=== PATIENT | female | born 1985 | race Caucasian/White ===

== ENCOUNTER 2022-04-07 17:47 | Emergency (ER) | payer MEDICAID ==
[~2022-04-07] VITALS: Ht 157.5 cm; Wt 69.9 kg
[2022-04-07 18:41] VITALS: BP 153/89
--- NOTE | 2022-04-07 18:52 | NUR ---
Valerie bojorquez in [facility] - 04/07/22 at 1853 by NICK NO ANSWER WHEN CALLED TO TRIAGE
--- NOTE | 2022-04-07 22:34 | NUR ---
PT TO BED 05.
--- NOTE | 2022-04-07 23:00 | NUR ---
Dr. Will examining patient.
--- NOTE | 2022-04-07 23:25 | NUR ---
X-Ray at bedside.
[2022-04-07 23:31] LABS: BASOPHILS % (AUTO) 0.5 % (0.0-2.0); EOSINOPHILS # (AUTO) 0.2 K/uL (0-0.4); HEMATOCRIT 35.2 % (36-48); HEMOGLOBIN 11.2 g/dL (12.0-16.0); LYMPHOCYTES # (AUTO) 2.4 K/uL (2.5-16.5); LYMPHOCYTES % (AUTO) 33.9 % (20.5-51.1); MEAN CORPUSCULAR HEMOGLOBIN 23 pg (27-31); MEAN CORPUSCULAR HGB CONC 32 g/dL (33-37); MEAN CORPUSCULAR VOLUME 73.1 fL (80-94); MONOCYTES # (AUTO) 0.5 K/uL (0.8-1.0); MONOCYTES % (AUTO) 7.7 % (1.7-9.3); NEUTROPHILS # (AUTO) 3.9 K/uL (1.8-7.7); NEUTROPHILS % (AUTO) 54.9 % (42.2-75.2); PLATELET COUNT (AUTO) 250 K/uL (140-450); RED BLOOD CELL COUNT(AUTO) 4.82 MIL/uL (4.20-5.40); RED CELL DISTRIBUTION WIDTH 17.7 % (11.6-13.7); WHITE BLOOD COUNT (AUTO) 7.1 K/uL (4.8-10.8)
[2022-04-07 23:48] LABS: ANION GAP 11.6 (8-16); CARBON DIOXIDE 30.1 mmol/L (21-32); CREATININE 0.5 mg/dL (0.6-1.3); POTASSIUM 3.7 mmol/L (3.5-5.1)
[2022-04-08 00:29] VITALS: BP 123/73
--- NOTE | 2022-04-08 00:31 | NUR ---
Patient discharged with v/s stable. Written and verbal after care instructions given and explained. Patient verbalized understanding. Ambulatory with steady gait. All questions addressed prior to discharge. Advised to follow up with PMD.
== END 2022-04-08 00:31 | disposition home or self-care (01) ==
LOC: MED 17:47
DX: R00.2 Palpitations (principal); Z90.49 Acquired absence of other specified parts of digestive tract
CPT/HCPCS: 36415; 71045; 80048; 84484; 85025; 93005; 99285; Q0092